=== PATIENT | male | born 1950 | race African-American/Black ===

== ENCOUNTER 2016-10-03 09:19 | Outpatient (CLI) | payer OTHER ==
[2016-10-03 10:00] LABS: Blood Urea Nitrogen 9 mg/dL (9-20)
--- NOTE | 2016-10-04 08:25 | Magnetic Resonance Report ---
MR ABDOMEN WITH AND WITHOUT CONTRAST HISTORY: Liver lesion, liver mass. TECHNIQUE: Multiple T1 and T2-weighted images were obtained with and without fat suppression post contrast dynamic imaging following 15 cc of Multihance. COMPARISON: None at this facility. FINDINGS: The liver is normal size, contour and signal intensity. There may be minimal diffuse fatty infiltration. There is no evidence for cirrhotic changes or other parenchymal disease. The portal venous system, hepatic veins and IVC are widely patent. No liver lesion/mass is detected on MRI. The biliary system, pancreas, spleen, adrenal glands and aorta are unremarkable. There are a few scattered simple cortical cysts in both kidneys measuring up to 1 cm. No renal mass or hydronephrosis. The bowel loops are unremarkable on MRI. The appendix is identified and is normal. No evidence for adenopathy, acute inflammation, ascites or enhancing mass. Right lateral spurring/bridging osteophyte is identified at L2-3 level. Otherwise, the bony structures are within normal limits. Normal heart size. Minor linear scarring or atelectasis is noted in the right lower lobe. IMPRESSION: Unremarkable liver. No suspicious liver mass is detected. There may be minimal fatty infiltration. Few scattered simple renal cortical cysts.
== END 2016-10-03 09:20 | disposition home or self-care (01) ==
LOC: MRI 09:19
PROVIDERS: ATTEND Internal Medicine Gastroenterology
DX: N28.1 Cyst of kidney, acquired (principal); K76.9 Liver disease, unspecified; R16.0 Hepatomegaly, not elsewhere classified; K76.89 Other specified diseases of liver; J98.11 Atelectasis; M25.78 Osteophyte, vertebrae; I10 Essential (primary) hypertension
CPT/HCPCS: 36415; 74183; 82565; 84520; A9577